=== PATIENT | male | born 1990 | race Caucasian/White ===

== ENCOUNTER 2018-02-01 12:36 | Emergency (ER) | payer BC ==
[~2018-02-01] VITALS: Ht 177.8 cm; Wt 99.8 kg
[~2018-02-01 12:36] MED LIST: NAPROSYN500 MG PO; NOHOMEMEDICATIONS; PERCOCET 5-3251 EACH PO
[2018-02-01 13:28] LABS: ABSOLUTE EOSINOPHILS 0.1 thou/uL (0.0-0.7); ABSOLUTE LYMPHOCYTES 1.8 thou/uL (0.8-5.3); ABSOLUTE MONOCYTES 0.2 thou/uL (0.0-1.2); ABSOLUTE NEUTROPHILS 3.2 thou/uL (1.6-8.1); BASOPHILS 0.6 %; EOSINOPHILS 1.2 %; HEMATOCRIT 44.8 % (42.0-52.0); HEMOGLOBIN 15.1 gm/dL (14.0-18.0); LYMPHOCYTES 33.9 %; MCH 28.7 pg (26.0-34.0); MCHC 33.6 g/dL (28.0-37.0); MCV 85.4 fL (80.0-100.0); MPV 8.8 fl. (7.2-11.1); NUCLEATED RBCS 0 /100WBC; PLATELET COUNT* 260 thou/uL (150-400); POLYS 60.3 %; RBC 5.24 mil/uL (4.50-6.00); RDW-CV 13.4 % (10.5-14.5); WBC 5.4 thou/uL (4.0-11.0)
[2018-02-01 13:35] LABS: ANION GAP 7 mmol/L (7-16); BUN 8 mg/dL (7-18); CHLORIDE 104 mmol/L (98-107); CO2 29 mmol/L (21-32); GLUCOSE 131 mg/dL (70-99); POTASSIUM 4.3 mmol/L (3.5-5.1); SODIUM 140 mmol/L (136-145)
[2018-02-01 13:42] LABS: ALBUMIN 4.5 g/dL (3.4-5.0); ALKALINE PHOSPHATASE 80 U/L (46-116); SGOT 18 U/L (15-37); SGPT 30 U/L (30-65); TOTAL BILIRUBIN 1.3 mg/dL (<0.1-1.0); TOTAL PROTEIN 7.6 g/dL (6.4-8.2); TROPONIN-I LEVEL <0.06 ng/mL (<0.06)
[2018-02-01 13:50] LABS: URINE BILIRUBIN NEGATIVE (Negative); URINE BLOOD NEGATIVE (Negative); URINE CLARITY CLEAR; URINE COLOR YELLOW; URINE GLUCOSE-RANDOM NEGATIVE (Negative); URINE KETONES NEGATIVE (Negative); URINE LEUKOCYTES-REFLEX NEGATIVE (Negative); URINE NITRITE-REFLEX NEGATIVE (Negative); URINE PROTEIN NEGATIVE (Negative); URINE SPECIFIC GRAVITY 1.025 (1.005-1.030); URINE UROBILINOGEN 0.2 E.U./dl (0.2-1.0)
--- NOTE | 2018-02-01 15:29 | EKG ---
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
[2018-02-01] MEDS ORDERED: MEDROLDOSEPACK PO (15:31)
[2018-02-01] MEDS ORDERED: NAPROSYN500 MG PO (15:31)
[2018-02-01 15:39] VITALS: BP 141/62
== END 2018-02-01 15:40 | disposition home or self-care (01) ==
LOC: M.ERS 12:36
PROVIDERS: Personal Emergency Response Attendant
DX: I31.9 Disease of pericardium, unspecified (principal); Z88.0 Allergy status to penicillin

== ENCOUNTER 2020-09-25 10:22 | Emergency (ER) | payer BC ==
[~2020-09-25] VITALS: Ht 177.8 cm; Wt 106.6 kg
[~2020-09-25 10:22] MED LIST changes: +MEDROLDOSEPACK PO
[2020-09-25 13:41] VITALS: BP 155/96
== END 2020-09-25 13:42 | disposition home or self-care (01) ==
LOC: M.ERS 10:22
DX: B34.9 Viral infection, unspecified (principal); Z20.828 Contact with and (suspected) exposure to other viral communicable diseases; Z88.0 Allergy status to penicillin